=== PATIENT | female | born 1985 | race Caucasian/White ===

== ENCOUNTER 2023-08-19 23:56 | Emergency (ER) | payer OTHER, SELFPAY ==
[2023-08-20 00:02] VITALS: BP 126/90
--- NOTE | 2023-08-20 00:25 | ED.GENMED ---
History of Present Illness
General
Chief Complaint: Musculo-Skeletal Complaint
Source: patient
Exam Limitations: none
Time Seen by Provider: 08/20/23 00:08
Nursing documentation reviewed up to this point in time: agreed with
Travel History
Have you had any contact with someone who has COVID-19?: No
Do you have any symptoms of coronavirus? Fever > 100 degrees, chills, cough, shortness of breath, sore throat, loss of taste or smell, muscle aches, or headache?: No
History of Present Illness
History of Present Illness:
pt is a 38 y/o F right hand dominant
was dancing and fell and landed funny on right wrist
no numbnes/tingling/weakness
pain with movement
no pain in the fingers or elbow
no head strike
Past History
Past History
ED Past Medical History: Other (allergies)
ED Past Surgical History: None
Social History
Tobacco: Non-smoker
Alcohol: None
Drug: None
Personal:
Living: with family
Review of Systems
Review of Systems
Allergies reviewed?: Yes
All Other Systems: Not applicable
Phy Exam
Physical Exam
Physical Exam:
GENERAL: Alert , in no apparent distress, comfortable at rest
HEAD: NCAT
CV: 2+ radial pulse
NEUROLOGICAL: Alert and oriented, no focal neuro deficits, , 5/5 strength, sensation intact, ambulation slight limp right leg
SKIN: Warm and dry, no bruising
MUSCULOSKELETAL: mild sts right wrist
no obvious deformity
elbow normal
pain with palpation of the wrist and with wrist flexion/extension
sensation tinact
PSYCH: Normal and appropriate interaction.
Course
Orders/Labs/Results
Orders:
Orders
08/20/23 00:06
Wrist, Right 3 Views [CR Wrist - Right Min 3 Views] Urgent
Comment:
Reason For Exam: injury
08/20/23 01:11
Ibuprofen [Motrin] 600 mg PO NOW STA
Vital Signs
Initial and Last Documented VS:
Initial Vital Signs
Temp Pulse Resp BP Pulse Ox
98.1 F 117 20 126/90 98
08/20/23 00:02 08/20/23 00:02 08/20/23 00:02 08/20/23 00:02 08/20/23 00:02
Last Documented Vital Signs
Temp Pulse Resp BP Pulse Ox
98.1 F 99 20 120/82 98
08/20/23 00:02 08/20/23 01:40 08/20/23 00:02 08/20/23 01:11 08/20/23 01:11
MDM/Problems Addressed
Differential Diagnosis Includes:
WRIST FRACTURE, SPRAIN
MDM/Problems Addressed:
38 y/o F R hand dominance
here with right wrist pain after fall while at an event
had had some drinks but did not hit her head
no numbness/tingling/weakness
pain int he wrist with movement
normal pulses
xray indep reviewed by me with comminuted impacted distal radius fx
volar splint ortho f/u
*Critical Care Note
Total Time (30-74mins, 75-104mins- exclusive of procedures): Not Applicable
ED Attending Note
-
Portions of this chart may have been created with voice recognition software.� Occasional wrong word or��sound alike� substitutions may have occurred due to the inherent limitations of voice recognition software.
Discharge Plan
Departure
Patient Disposition: Home (Routine Discharge)
Date of Disposition: 08/20/23
Time of Disposition: 01:11
Patient with high blood pressure during this ER visit?: No
Condition: Fair
Discharge Problem:
Closed fracture of distal end of right radius
Instructions: Wrist Fracture (DC)
Referrals:
Junito Hill, [Family Provider] -
Suman Cannon MD [Active] - Follow up in 2-3 days (ortho bobby)
Stand Alone Forms: Return to Work
Activity Restrictions/Additional Instructions:
YOU BROKE YOUR RIGHT DISTAL RADIUS
WEAR THE SPLINT
ICE OFF AND ON
ELEVATE
DO NOT GET THE SPLINT WENT
TAKE MOTRIN FOR PAIN NEEDED
RETURN FOR ANY CONCERNS
SEE ORTHOPEDICS FOR FOLLOW UP
Interventions
Interventions:
*Risk Screen - Suicide Last Done: 08/20/23 00:02
*General Assessment Last Done: 08/20/23 00:02
*Neglect/Abuse Screening Last Done: 08/20/23 00:02
ED- Fall Risk Assessment Last Done: 08/20/23 00:02
*ED COVID-19 Vaccine History Last Done: 08/20/23 00:02
ED-Musculoskeletal Assessment Last Done: 08/20/23 00:32
Discharge Date and Time
Print Language: NEPALI
[2023-08-20 00:29] VITALS: BMI 24.7
[2023-08-20 00:32] VITALS: BP 116/83
[2023-08-20 01:11] VITALS: BP 120/82
[2023-08-20] MEDS: MOTRIN 600 MG PO (01:18)
== END 2023-08-20 01:48 | disposition home or self-care (01) ==
LOC: EMR 23:56
PROVIDERS: EMERGENCY PHYSICIAN Student in an Organized Health Care Education/Training Program; FAMILY PHYSICIAN Family Medicine
DX: S52.501A Unspecified fracture of the lower end of right radius, initial encounter for closed fracture (principal); X50.1XXA Overexertion from prolonged static or awkward postures, initial encounter
CPT/HCPCS: 99283; 29125; 73110